=== PATIENT | male | born 1995 | race American Indian/Alaskan Native ===

== ENCOUNTER 2020-03-18 18:43 | Emergency (ER) | payer SELFPAY ==
[2020-03-18 20:13] LABS: Basophils % (Auto) 0.3 % (0.0-1.8); Hematocrit 47.5 % (35.5-45.6); Hemoglobin 15.6 gm/dl (11.8-15.2); Lymphocytes # (Auto) 1.8 K/mm3 (1.2-5.4); Lymphocytes % (Auto) 39.7 % (13.4-35.0); Mean Corpuscular HGB Conc 33 % (32-34); Mean Corpuscular Volume 87 fl (84-94); Monocytes # (Auto) 0.4 K/mm3 (0.0-0.8); Monocytes % (Auto) 9.6 % (0.0-7.3); Platelet Count 216 K/mm3 (140-440); Red Blood Count 5.43 M/mm3 (3.65-5.03)
[2020-03-18 20:17] LABS: Bacteria,Urine 1+ /HPF (Negative); Bilirubin,Urine NEG (Negative); Blood,Urine NEG (Negative); Calcium Oxalate Crystals,Urine FEW; Color,Urine Yellow (Yellow); Mucus,Urine 2+ /HPF; Protein,Urine <15 mg/dL mg/dL (Negative)
[2020-03-18 20:24] LABS: Amphetamine Screen,Urine PRESUMPTIVE POSITIVE; Benzodiazepines Screen,Urine PRESUMPTIVE NEGATIVE; Cannabinoid Screen,Urine PRESUMPTIVE POSITIVE; Cocaine Screen,Urine PRESUMPTIVE NEGATIVE; Methadone Screen,Urine PRESUMPTIVE NEGATIVE; Opiate Screen,Urine PRESUMPTIVE NEGATIVE
[2020-03-18 20:32] LABS: BUN/Creatinine Ratio 11; Blood Urea Nitrogen 14 mg/dL (9-20); Calcium 9.3 mg/dL (8.4-10.2); Hemolysis Index 9
[2020-03-18] MEDS ORDERED: HALOPERIDOL 5 MG TAB PO ONE (20:49)
[2020-03-18] MEDS ORDERED: LORazepam 1 MG TAB PO ONE (20:49)
[2020-03-18] MEDS ORDERED: LORazepam 2 MG/ML VIAL IM PRN (20:50)
[2020-03-18] MEDS ORDERED: HALOPERIDOL LACTATE 5 MG/1 ML INJ IM PRN (20:50)
[2020-03-18] MEDS ORDERED: diphenhydrAMINE 50 MG/ML VIAL IM PRN (20:50)
--- NOTE | 2020-03-18 20:54 | Emergency Department Report ---
HPI - General Chief Complaint: Psych PUI?: No Time Seen by Provider: 03/18/20 20:37 - HPI HPI: Room 17 The patient is a 24-year-old male present with a chief complaint of paranoid behavior. The mother states the patient took an ecstasy pill approximate 4 weeks ago and ever since then he has been paranoid. The mother states the patient believes someone is going to kill him. The patient also verbalizes he thinks the mother is setting him up to get killed. The mother states the patient has not been sleeping. The mother called the crisis center 3 weeks ago and states the patient was admitted for 1 week. She states the patient had a CAT scan of the brain which was normal and was eventually discharged with Benadryl but not given a specific diagnosis. Mother states the patient's behavior has not changed as he behaves like he is a "a 6-year-old" wandering around the house. Mother states she is not able to leave him alone unattended because it is not safe. The mother states the patient confided in her that he has been having auditory hallucinations. Patient denies suicidal homicidal ideation ED Past Medical Hx - Past Medical History Previous Medical History?: No - Surgical History Past Surgical History?: No - Family History Family history: no significant - Social History Smoking Status: Current Every Day Smoker (1/3 pack/day) Substance Use Type: Alcohol (Occasional), Marijuana - Medications Home Medications: Home Medications Medication Instructions Recorded Confirmed Last Taken Type Sulfamethoxazole/Trimethoprim 1 each PO Q12HR #14 tablet 03/20/20 Unknown Rx [Bactrim DS TAB] risperiDONE [RisperDAL] 0.25 mg PO BID #60 tab 03/20/20 Unknown Rx traZODone [Desyrel] 50 mg PO QHS #30 tab 03/20/20 Unknown Rx ED Review of Systems ROS: Stated complaint: PSYCH/DELUSIONAL Other details as noted in HPI Constitutional: no symptoms reported Respiratory: no symptoms reported Endocrine: no symptoms reported Psychiatric: auditory hallucinations. denies: homicidal thoughts, suicidal thoughts Physical Exam - Physical Exam Vital Signs: Vital Signs 03/18/20 19:27 Temperature 98.1 F Pulse Rate 90 Respiratory 18 Rate Blood Pressure 122/78 O2 Sat by Pulse 98 Oximetry Physical Exam: GENERAL: The patient is well-developed well-nourished male standing in room appearing slightly anxious but in no acute distress. [] HEENT: Normocephalic. Atraumatic. Extraocular motions are intact. Patient has moist mucous membranes. NECK: Supple. Trachea midline CHEST/LUNGS: Clear to auscultation. There is no respiratory distress noted. HEART/CARDIOVASCULAR: Regular. There is no tachycardia. There is no gallop rub or murmur. ABDOMEN: Abdomen is soft, nontender. Patient has normal bowel sounds. There is no abdominal distention. SKIN: There is no rash. There is no edema. There is no diaphoresis. NEURO: The patient is awake, alert, and oriented. The patient is cooperative. The patient has no focal neurologic deficits. The patient has normal speech MUSCULOSKELETAL: There is no evidence of acute injury. ED Course Vital Signs 03/18/20 19:27 Temperature 98.1 F Pulse Rate 90 Respiratory 18 Rate Blood Pressure 122/78 O2 Sat by Pulse 98 Oximetry ED Medical Decision Making - Lab Data Result diagrams: 03/18/20 19:37 03/18/20 19:37 - Differential Diagnosis Psychosis, drug-induced psychosis, schizophrenia, Critical care attestation.: If time is entered above; I have spent that time in minutes in the direct care of this critically ill patient, excluding procedure time. ED Disposition Clinical Impression: Acute psychosis, Medical clearance for psychiatric admission UTI (urinary tract infection) Qualifiers: Urinary tract infection type: site unspecified Hematuria presence: without hematuria Qualified Code(s): N39.0 - Urinary tract infection, site not specified Disposition: DC-01 TO HOME OR SELFCARE Is pt being admited?: No Does the pt Need Aspirin: No Condition: Stable Instructions: Urinary Tract Infection in Men (ED), Suicide Prevention for Adults (ED) Additional Instructions: Outpatient COMMUNITY Behavioral Health Resources: [facility] ([facility]) [address] [place] [address] / Sunday thru Sunday - 8am - 5pm [facility] [phone] CRISIS RESOURCES IN Crisis Line: Suicide Prevention Line: Crisis Text Line: Text START to [phone] Emergency: 911 Prescriptions: Sulfamethoxazole/Trimethoprim [Bactrim DS TAB] 1 each PO Q12HR #14 tablet traZODone [Desyrel] 50 mg PO QHS #30 tab risperiDONE [RisperDAL] 0.25 mg PO BID #60 tab Referrals: [facility] [Provider Group] - 3-5 Days [facility] [Primary Care Provider] - 3-5 Days
[2020-03-18] MEDS: SULFAMETHOXAZOLE/TRIMETHOPRIM 800/160MG DS TAB PO SCH (22:32)
--- NOTE | 2020-03-19 10:46 | Consultation ---
History of Present Illness - Reason for Consult Consult date: 03/19/20 Reason for consult: paranoid - History of Present Psychiatric Illness The patient's medical record was reviewed and the patient's progress was discussed with the nursing staff. During my interview with the patient, he is lying down asleep. He arouses easily. The patient is oriented x 3. He is paranoid and appears to be responding to internal stimuli. He is indecisive with some of his answers. He seems preoccupied. He at times he stares, and pauses for periods in between questioning. The patient states he "feels unsafe." He then states, "I feel like somebody's trying to get me." He then stares straight ahead. When asking the patient was he hallucinating, he says, "no, not at the moment." He then stares ahead again, and states, "yea I hear voices and see things." He says "but I'm good thought. It aint nothing wrong with me." When asking the patient what was it he is seeing and hearing. He states, "nothing right now." He denies SI/HI or ever having an attempt of suicide. The patient also denies any past hospital admissions. The patient also denies any past psychiatric diagnoses. He says he was taking "benadryl and trazodone" but states he "doesn't know why I was taking them." The patient says he does "weed and pills." PAST PSYCHIATRIC HISTORY Diagnoses: Denies Suicide attempts or Self-harm behavior: denies Prior psychiatric hospitalizations: Denies Substance Abuse history: "weed and pills" Previous psychiatric medications tried: Trazodone Outpatient treatment: Denies PAST MEDICAL HISTORY: Denies Family Psychiatric History: None reported or documented SOCIAL HISTORY Marital Status: Single Living Arrangements: with family Employment Status: Unemployed Access to guns/weapons: Yes Education: History of Abuse: none reported Legal History: none reported REVIEW OF SYSTEMS Constitutional: Negative for weight loss ENT: Negative for stridor Respiratory: Negative for cough or hemoptysis All other systems reviewed and are negative MENTAL STATUS EXAMINATION General Appearance: Dressed appropriately Behavior: preoccupied, indecisive, odd Mood: good Affect and affective range: Congruent with stated mood Thought Process: responding to internal stimule Thought Content: Hallucinations Speech: Normal volume, Regular rate and rhythm Suicidal Ideation: Denies Homicidal Ideation: Denies Hallucinations: A/V Delusions: Paranoid Insight and Judgment: Limited Memory/Cognition: Limited Attention: Normal Orientation: Alert, oriented Assessment Schizoaffctive Disorder Substance Induced Mood Disorder PLAN Start Risperidone 0.25mg po BID Start Trazodone 50mg po qhs Sitter: Defer to primary Medical: Per primary Disposition: Recommend acute inpatient psychiatric treatment Will continue to follow. Thank you for this consult. Medications and Allergies Allergies Allergy/AdvReac Type Severity Reaction Status Date / Time No Known Allergies Allergy Verified 03/18/20 21:16 Active Meds: Active Medications Diphenhydramine HCl (Benadryl) 50 mg IM Q6H PRN PRN Reason: Agitation Haloperidol Lactate (Haldol) 10 mg IM Q8H PRN PRN Reason: Agitation Lorazepam (Ativan) 2 mg IM Q8H PRN PRN Reason: Agitation Trimethoprim/Sulfamethoxazole (Bactrim Ds) 1 each PO Q12HR ELDER Last Admin: 03/18/20 22:32 Dose: 1 each Documented by: Mental Status Exam - Vital signs Last Vital Signs Temp 98.2 F 03/19/20 09:04 Pulse 64 03/19/20 09:04 Resp 18 03/19/20 09:04 BP 109/74 03/19/20 09:04 Pulse Ox 97 03/19/20 09:04 Results Result Diagrams: 03/18/20 19:37 03/18/20 19:37 Abnormal lab results 03/18/20 03/18/20 03/18/20 Range/Units 19:33 19:37 19:37 RBC (3.65-5.03) M/mm3 Hgb (11.8-15.2) gm/dl Hct (35.5-45.6) % Lymph % (Auto) (13.4-35.0) % [place] % (Auto) (0.0-7.3) % Glucose (75-100) mg/dL Urine WBC (Auto) 9.0 H (0.0-6.0) /HPF Salicylates < 0.3 L (2.8-20.0) mg/dL Acetaminophen 5.0 L (10.0-30.0) ug/mL 03/18/20 03/18/20 Range/Units 19:37 19:37 RBC 5.43 H (3.65-5.03) M/mm3 Hgb 15.6 H (11.8-15.2) gm/dl Hct 47.5 H (35.5-45.6) % Lymph % (Auto) 39.7 H (13.4-35.0) % [place] % (Auto) 9.6 H (0.0-7.3) % Glucose 122 H (75-100) mg/dL Urine WBC (Auto) (0.0-6.0) /HPF Salicylates (2.8-20.0) mg/dL Acetaminophen (10.0-30.0) ug/mL All other labs normal.
[2020-03-19] MEDS: SULFAMETHOXAZOLE/TRIMETHOPRIM 800/160MG DS TAB PO SCH ×2 (10:55→21:44)
[2020-03-19] MEDS: risperiDONE 0.25 MG TAB PO SCH ×2 (14:30→21:44)
[2020-03-19] MEDS ORDERED: traZODone 50 MG TAB PO SCH (22:00)
[2020-03-20 08:47] VITALS: BP 125/85
--- NOTE | 2020-03-20 10:55 | Progress Note ---
Subjective - Reason for Consult Consult date: 03/20/20 Reason for consult: hallucinations - Chief Complaint Chief complaint: The patient's medical record was reviewed and the patient's progress was discussed with the nursing staff. The nurse note states the patient is resting quietly on recliner, resp even and non labored, no acute distress noted, no complaints of voiced, no behaviors or s/s of self harm noted, ambulates as needed to restroom without difficulty, able to make needs known, calm and cooperative at this time. During my interview with the patient this morning, he is lying down. He arouses easily. He is oriented x 3. He is calm and cooperative. He is more lucid and conversational today. The patient says he slept "good." He denies SI/HI stating, "I'm not gone hurt myself or nobody else. I'm bigger than that." The patient also denies hallucinations of any kind. He says "I told you I just needed my medications." He then says, "can you give them to me?" When asking the patient was he still feeling like someone is out to get him, he replies, "no ma'am. But when I'm at home by myself I do feel scare." He then says, "but I'm okay when my momma or my daddy is there with me." The patient says he lives with his mom, but stays at his dad sometimes. He says "I'm supposed to go live with my dad soon." The patient says, "I've just been laying here, ma'am. I got my meds now. I just wouldn't benefit from going to no psych facility." REVIEW OF SYSTEMS Constitutional: Negative for weight loss ENT: Negative for stridor Respiratory: Negative for cough or hemoptysis All other systems reviewed and are negative MENTAL STATUS EXAMINATION General Appearance: Dressed appropriately Behavior: calm, and cooperative Mood: good Affect and affective range: Congruent with stated mood Thought Process: goal directed Thought Content: None Speech: Normal volume, Regular rate and rhythm Suicidal Ideation: Denies Homicidal Ideation: Denies Hallucinations: Denies Delusions: None elicited Insight and Judgment:Normal Memory/Cognition: Normal Attention: Normal Orientation: Alert, oriented Assessment Schizoaffctive Disorder Substance Induced Mood Disorder PLAN d/c 1013 Scripts Risperidone 0.25mg po BID Trazodone 50mg po qhs Sitter: Defer to primary Medical: Per primary Disposition: Do not recommend acute inpatient psychiatric treatment. The patient may discharge home once medically clear. He understands that if any SI/HI or feelings of endangerment arise, he is to seek immediate assistance, including but not limited to the crisis hotline, 911 or the ER. The assess to further discuss safety plan The motorboat mechanic inboard/outboard to give the patient outpatient resources including cognitive behavioral therapy The patient to follow up with outpatient psych in 7 to 14 days upon discharge. The patient to abstain from all illicit drug use Will sign off. Thank you for this consult. Mental Status Exam - Vital signs Last Vital Signs Temp 97.6 F 03/20/20 08:45 Pulse 70 03/20/20 08:45 Resp 03/20/20 08:45 BP 125/85 03/20/20 08:45 Pulse Ox 98 03/20/20 08:45
[2020-03-20] MEDS: SULFAMETHOXAZOLE/TRIMETHOPRIM 800/160MG DS TAB PO SCH (11:32)
[2020-03-20] MEDS: risperiDONE 0.25 MG TAB PO SCH (11:32)
== END 2020-03-20 15:00 | disposition home or self-care (01) ==
LOC: EEVIPCON 18:43 → ED 18:43
DX: F22 Delusional disorders (principal); F17.200 Nicotine dependence, unspecified, uncomplicated; F12.10 Cannabis abuse, uncomplicated
CPT/HCPCS: 36415; 80048; 80307; 80320; 81001; 85025; 87086; G0480